=== PATIENT | female | born 1990 ===

== ENCOUNTER → 2018-01-20 | Outpatient (CLI) | payer BC ==
[2018-01-20 11:35] LABS: Free Thyroxine 0.9 ng/dL (0.70-1.60)
[2018-01-20 11:36] LABS: Thyroid Stimulating Hormone 1.87 uIU/mL (0.360-4.800)
== END ==
LOC: LAB SHORT 10:50 → LAB 10:50
PROVIDERS: Nurse Practitioner Family
DX: R53.83 Other fatigue (principal)
CPT/HCPCS: 84439; 84443